=== PATIENT | male | born 1985 | race Two or more races ===

== ENCOUNTER 2020-11-02 19:29 | Emergency (ER) | payer OTHER ==
[~2020-11-02] VITALS: Ht 177.8 cm; Wt 104.5 kg
[2020-11-02] MEDS ORDERED: ACETAMINOPHEN 500 MG TABLET PO ONE (21:15)
[2020-11-02 22:06] VITALS: BP 126/73
== END 2020-11-02 22:12 | disposition home or self-care (01) ==
LOC: EMS 19:29
DX: S46.811A Strain of other muscles, fascia and tendons at shoulder and upper arm level, right arm, initial encounter (principal); X58.XXXA Exposure to other specified factors, initial encounter; Y93.89 Activity, other specified; Y92.89 Other specified places as the place of occurrence of the external cause; Y99.8 Other external cause status
CPT/HCPCS: 99283